=== PATIENT | male | born 1955 | race Caucasian/White ===

== ENCOUNTER 2024-05-26 07:01 | Day surgery (SDC) | payer MEDICARE, OTHER ==
[~2024-05-26] VITALS: Ht 180.3 cm; Wt 104.8 kg
[~2024-05-26 07:01] MED LIST: FENO160 PO; Lidocaine 1%-Epineph 1:100000 20 ML MDV ONE; NS 500 ML IV ONE; OMEP20ER PO; ROSUVASTATIN CA20 MG PO; SKYRIZI PE150 MG/1 M SC; Sodium Bicarb 8.4% 1 MEQ/ML 50 ML Vial ONE
[2024-05-26] MEDS ORDERED: NS 500 ML IV ONE (07:41)
[2024-05-26] MEDS ORDERED: FentaNYL Citrate 50 MCG/ML 2 ML Injection ONE (08:44)
[2024-05-26] MEDS ORDERED: Midazolam HCl 1MG / ML 2ML Vial ONE (08:45)
[2024-05-26] MEDS ORDERED: Dexamethasone Sod Phos 10 MG/ML 1ML VIAL ONE (08:51)
[2024-05-26] MEDS ORDERED: Ondansetron HCl 2 MG / ML 2ML Vial ONE (08:51)
[2024-05-26 09:07] VITALS: BP 144/76
== END 2024-05-26 09:25 | disposition home or self-care (01) ==
LOC: ORSCSDS 07:01
PROVIDERS: Orthopaedic Surgery
PROC: 01N54ZZ Release Median Nerve, Percutaneous Endoscopic Approach (ICD-10-PCS; principal; 2024-05-26 08:30)
DX: G56.02 Carpal tunnel syndrome, left upper limb (principal); K21.9 Gastro-esophageal reflux disease without esophagitis; E78.5 Hyperlipidemia, unspecified; E66.9 Obesity, unspecified; Z68.32 Body mass index [BMI] 32.0-32.9, adult; Z79.899 Other long term (current) drug therapy; Z87.891 Personal history of nicotine dependence
CPT/HCPCS: J1100; J2250; J2405; J3010; J7040